=== PATIENT | female | born 1945 | race Caucasian/White ===

== ENCOUNTER → 2016-11-21 | Outpatient (CLI) | payer MEDICARE, OTHER ==
[~2016-11-21] MED LIST: APRESOLINE 25MG25 MG PO; ASPIRIN 32325 MG/TAB PO; ASPIRIN E.C. 8181 MG PO; CELEXA 20MG20 MG/TAB PO; COZAAR100 MG PO; FISH OIL1 IU PO; MULTIPLE VITAMI1 CAP PO; NO HOME MEDICATIONS; NORCO 325 MG-51 TAB PO; NORVASC 5MG5 MG/TAB PO; PERCOCET 5/321 UDTAB PO; PLAVIX 75MG TAB75 MG PO; PRILOSEC 20MG20 MG PO; TOPROL XL 25MG25 MG PO; VITAMIN C PUR1000 MG PO; ZESTRIL 10MG10 MG PO; ZOCOR 20MG20 MG PO; [UNRECOGNIZED DRUG - REMARK]
== END ==
LOC: COL.RAD 06:12
DX: K57.92 Diverticulitis of intestine, part unspecified, without perforation or abscess without bleeding (principal)
CPT/HCPCS: A9537

== ENCOUNTER → 2016-11-23 | Outpatient (CLI) | payer MEDICARE, OTHER | LOC: COL.RAD 08:24 | DX: K42.9 Umbilical hernia without obstruction or gangrene (principal); K43.9 Ventral hernia without obstruction or gangrene; K57.30 Diverticulosis of large intestine without perforation or abscess without bleeding; K63.89 Other specified diseases of intestine; K59.00 Constipation, unspecified | CPT/HCPCS: Q9967 ==

== ENCOUNTER → 2017-12-12 | Outpatient (CLI) | payer MEDICARE, OTHER ==
[~2017-12-12] VITALS: Ht 170.2 cm; Wt 118.2 kg
[~2017-12-12] MED LIST changes: +LIPITOR20 MG PO; +TENORMIN 2525 MG/TAB PO
[2017-12-12 12:50] VITALS: BP 140/71; PULSE 76
[2017-12-12 13:45] VITALS: BP 160/74; PULSE 49
[2017-12-12 14:00] VITALS: BP 156/73; PULSE 48
[2017-12-12 14:15] VITALS: BP 151/66; PULSE 42
[2017-12-12 14:22] LABS: GLUCOSE,CSF 59 mg/dL (40-70); TOTAL PROTEIN,CSF 43 mg/dL (15-45)
[2017-12-12 14:23] LABS: CSF APPEARANCE CLEAR; CSF COLOR COLORLESS; CSF POLYMORPHONUCLEAR 0 % (0-6); CSF RBC 1 /mm3 (0-0)
[2017-12-12 14:24] LABS: CSF MONONUCLEAR 100 % (70-100)
[2017-12-12 14:30] VITALS: BP 129/79; PULSE 51
[2017-12-12 14:45] VITALS: BP 158/71; PULSE 48
== END ==
LOC: COL.RAD 12:15
PROVIDERS: Psychiatry & Neurology Neurology
DX: E23.6 Other disorders of pituitary gland (principal); G31.84 Mild cognitive impairment of uncertain or unknown etiology; R63.5 Abnormal weight gain

== ENCOUNTER 2018-06-24 12:50 | Emergency (ER) | payer MEDICARE, OTHER ==
[~2018-06-24] VITALS: Ht 167.6 cm; Wt 113.6 kg
[2018-06-24 12:56] VITALS: TEMP 97.7
[2018-06-24 13:16] LABS: BASO % 0.6 % (0.0-2.0); EOS # 0.3 (0.0-0.7); EOS % 3.7 % (0-4.0); GRAN % 57.3 % (42.2-75.2); HEMATOCRIT 42.6 % (37.0-47.0); HEMOGLOBIN 13.4 g/dl (12.5-16.0); LYMPH % 28.4 % (20.0-51.0); MEAN CELL VOLUME 90 fl (80.0-100.0); MEAN CORPUSCULAR HEMOGLOBIN 28 pg (27.0-31.0); MEAN CORPUSCULAR HGB CONC 32 g/dl (33.0-37.0); MEAN PLATELET VOLUME 10.1 fl (7.4-10.4); MONO # 0.7 (0.1-0.6); MONO % 9.7 % (1.7-9.3); PLATELET COUNT 245 K/mm3 (130-400); RED BLOOD COUNT 4.73 M/mm3 (4.10-5.30); REDCELL DISTRIBUTION WIDTH-CV 13.6 % (11.5-14.5)
[2018-06-24 13:17] LABS: PROTHROMBIN TIME 11.2 SECONDS (9.7-12.8)
[2018-06-24 13:20] LABS: PARTIAL THROMBOPLASTIN TIME 30.8 SECONDS (26.0-37.0)
[2018-06-24 13:24] LABS: ALANINE AMINOTRANSFERASE 19 U/L (9-52); ALBUMIN 3.8 gm/dL (3.5-5.0); ALKALINE PHOSPHATASE 76 U/L (50-136); ANION GAP 6 mmol/L (7-16); AST,SGOT 19 U/L (15-37); BILIRUBIN,TOTAL 0.5 mg/dL (0.0-1.0); BLOOD UREA NITROGEN 21 mg/dL (7-17); CARBON DIOXIDE 29 mmol/L (22-30); CHLORIDE 103 mmol/L (98-107); CREATININE, serum 0.74 (0.52-1.25); GLUCOSE 93 mg/dL (74-106); POTASSIUM 4.4 mmol/L (3.4-5.0); SODIUM 138 mmol/L (137-145); TOTAL PROTEIN 6.8 gm/dL (6.4-8.2)
[2018-06-24 13:36] LABS: TROPONIN-I < 0.012 ng/mL (0.000-0.035)
[2018-06-24 16:13] VITALS: BP 136/63; PULSE 59
== END 2018-06-24 16:15 | disposition home or self-care (01) ==
LOC: COL.ER 12:50
PROVIDERS: Family Medicine
DX: R07.89 Other chest pain (principal); I25.10 Atherosclerotic heart disease of native coronary artery without angina pectoris; Z95.5 Presence of coronary angioplasty implant and graft; Z79.82 Long term (current) use of aspirin
CPT/HCPCS: Q9967

== ENCOUNTER 2018-12-02 14:12 | Emergency (ER) | payer MEDICARE, OTHER ==
[~2018-12-02] VITALS: Ht 167.6 cm; Wt 118.2 kg
[2018-12-02 14:15] VITALS: TEMP 98.2
[2018-12-02] MEDS ORDERED: ZITHROMAX Z PA250 MG PO (15:26)
[2018-12-02 15:35] VITALS: BP 125/70; PULSE 64
== END 2018-12-02 15:42 | disposition home or self-care (01) ==
LOC: COL.ER 14:12
DX: T17.920A Food in respiratory tract, part unspecified causing asphyxiation, initial encounter (principal); I10 Essential (primary) hypertension; K21.9 Gastro-esophageal reflux disease without esophagitis

== ENCOUNTER → 2019-02-26 | Outpatient (CLI) | payer MEDICARE, OTHER ==
[~2019-02-26] MED LIST changes: +ZITHROMAX Z PA250 MG PO
== END ==
LOC: MC.RAD 09:19
DX: Z12.31 Encounter for screening mammogram for malignant neoplasm of breast (principal)

== ENCOUNTER 2019-07-08 11:18 | Emergency (ER) | payer MEDICARE, OTHER ==
[~2019-07-08] VITALS: Ht 167.6 cm; Wt 119.1 kg
[2019-07-08 11:29] VITALS: BP 133/66; TEMP 98.2
[2019-07-08] MEDS ORDERED: MOBIC 7.5MG7.5 MG PO (12:59)
[2019-07-08 13:07] VITALS: PULSE 67
== END 2019-07-08 13:07 | disposition home or self-care (01) ==
LOC: COL.ER 11:18
DX: S63.653A Sprain of metacarpophalangeal joint of left middle finger, initial encounter (principal); I10 Essential (primary) hypertension; Z79.82 Long term (current) use of aspirin; X50.1XXA Overexertion from prolonged static or awkward postures, initial encounter

== ENCOUNTER 2021-10-01 10:03 | Day surgery (SDC) | payer MEDICARE, OTHER ==
[~2021-10-01] VITALS: Ht 167.6 cm; Wt 109.4 kg
[~2021-10-01 10:03] MED LIST changes: +MOBIC 7.5MG7.5 MG PO
[2021-10-01] MEDS ORDERED: CELEXA10 MG PO (11:42)
[2021-10-01 12:25] VITALS: BP 157/80; PULSE 61; TEMP 98.4
--- NOTE | 2021-10-01 12:25 | NUR ---
pt to [facility] via cart from endo lab, pt walked to chair, call light in reach, takes snack and has no c/o
[2021-10-01 12:40] VITALS: BP 157/81; PULSE 58
--- NOTE | 2021-10-01 12:40 | NUR ---
into see pt and discuss findings
[2021-10-01 13:00] VITALS: BP 143/71; PULSE 60
--- NOTE | 2021-10-01 13:00 | NUR ---
reviewed inst. with pt on sedation, followup and precautions discussed with verbal understanding. IV d'cd intact, pt is up and dressed and discharged via w/c to family member at 1320
[2021-10-01 15:19] VITALS: BP 157/77; PULSE 57; TEMP 97.7
[2021-10-01 16:07] VITALS: BP 115/60; PULSE 67
== END 2021-10-01 13:20 | disposition home or self-care (01) ==
LOC: SDCO 10:03
DX: K29.30 Chronic superficial gastritis without bleeding (principal); K21.9 Gastro-esophageal reflux disease without esophagitis; E66.01 Morbid (severe) obesity due to excess calories; G47.33 Obstructive sleep apnea (adult) (pediatric); Z79.899 Other long term (current) drug therapy
CPT/HCPCS: J2704; J7030

== ENCOUNTER 2023-06-24 09:09 | Emergency (ER) | payer MEDICARE, OTHER ==
[~2023-06-24] VITALS: Ht 172.7 cm; Wt 110.0 kg
[~2023-06-24 09:09] MED LIST changes: +B-12 500 MCG PO; +BENADRYL25 M2 PO; +CELEXA10 MG PO; +EPA FISH OIL1 SGL PO; +ESTRACE0.1 MG/GM VG; +MASON NATURAL2000 IU PO; +MIRALAX PA17 GM/Dose PO; +NATURAL ODORLE400 MG PO; +PACERONE100 MG PO; +PACERONE200 MG PO; +PRIL40 PO; +PROTONIX 40MG T40 MG PO; +TEMOVATE OINT30 GM TOP; +TYLENOL 325MG325 MG PO; +VITAMIN E1000 U/CAP PO; +VITAMINC1000TA PO; +ZETIA 10MG TAB10 MG PO
[2023-06-24 09:19] VITALS: TEMP 97.8
[2023-06-24 10:30] LABS: BASO # 0.1 K/mm3 (0.0-0.2); BASO % 0.9 % (0.0-2.0); EOS # 0.2 K/mm3 (0.0-0.7); EOS % 3.1 % (0.0-4.0); GRAN # 3.7 K/mm3 (1.4-6.5); GRAN % 63.7 % (42.2-75.2); HEMATOCRIT 43.4 % (37.0-47.0); HEMOGLOBIN 13.8 g/dl (12.5-16.0); LYMPH # 1.4 K/mm3 (1.2-3.4); LYMPH % 23.6 % (20.0-51.0); MEAN CELL VOLUME 91 fl (80.0-100.0); MEAN CORPUSCULAR HEMOGLOBIN 29 pg (27-31); MEAN CORPUSCULAR HGB CONC 32 g/dl (33.0-37.0); MEAN PLATELET VOLUME 9.2 fl (7.4-10.4); MONO # 0.5 K/mm3 (0.1-0.6); MONO % 8.4 % (1.7-9.3); PLATELET COUNT 228 K/mm3 (130-400); RED BLOOD COUNT 4.79 M/mm3 (4.10-5.30); REDCELL DISTRIBUTION WIDTH-CV 13.5 % (11.5-14.5)
[2023-06-24] MEDS ORDERED: ELIQUIS 5MG PO (11:40)
[2023-06-24 12:04] VITALS: BP 170/90; PULSE 56
== END 2023-06-24 12:00 | disposition home or self-care (01) ==
LOC: COL.ER 09:09
PROVIDERS: Emergency Medicine
DX: I83.92 Asymptomatic varicose veins of left lower extremity (principal); R79.89 Other specified abnormal findings of blood chemistry

== ENCOUNTER → 2023-06-26 | Outpatient (CLI) | payer MEDICARE, OTHER ==
[~2023-06-26] MED LIST changes: +ELIQUIS 5MG PO
== END ==
LOC: COL.RAD 05:11
DX: I82.492 Acute embolism and thrombosis of other specified deep vein of left lower extremity (principal)